=== PATIENT | male | born 1950 | race Caucasian/White ===

== ENCOUNTER 2016-12-03 16:00 | Inpatient (IN) | payer MEDICARE ==
[~2016-12-03] VITALS: Ht 160 cm; Wt 137.8 kg
[~2016-12-03 16:00] MED LIST: AMLODIPINE10 MG PO; ASPI325T6 PO; ASPIRIN E.C. 8181 MG PO; BENADRYL50 MG PO; BUMEX 1MG TA1 MG/TA1 PO; CATAPRES 0.1MG0.1 MG PO; CLARITIN10 MG PO; DEMADEX100 MG PO; DISALCID500 MG PO; DISALCID750 MG PO; FOLIC ACID 11 MG/TA1 PO; FORTESTA10 MG/0.5 TP; GLUCOPHAGE500 MG/TAB PO; HYDROCHLOROTH12.5 MG PO; HYDROCODONE/APAP; IMODIUM 2MG CAPS2 MG PO; KLOR-CON 1010 MEQ PO; LIPITOR 80MG80 MG PO; LOPRESSOR 550 MG/TAB PO; METHOTREXA2.5 MG/TAB PO; MULTIPLE VITAMI1 CAP PO; NATURAL MAGNES200 MG PO; NEURONTIN100 MG/CAP PO; NEURONTIN300 MG PO; NEURONTIN300 MG/CAP PO; OXYCONTIN 10MG10 MG PO; PERCOCET 325 MG1 TA2 PO; PLAVIX 75MG TAB75 MG PO; PREDNISONE 2.52.5 MG PO; PREDNISONE 5MG5 MG PO; PREDNISONE20 MG PO; PROBIOTICA100 MILLIO PO; PROTONIX20 MG PO; RT ADVAIR 228 DISKUS IH; SINEQUAN 2525 MG/CAP PO; SYNTHROID0.125 MG/T PO; THEO-24 20200 MG/CAP PO; THEO-DUR 2200 MG/TAB PO; ULTRAM ER100 MG PO; UNABLE; VITAMIN D 50,1.25 MG PO; ZANTAC 7575 MG PO; ZESTRIL 5MG5 MG PO; ZOFRAN 4MG T4 MG/TAB PO; [UNRECOGNIZED DRUG - REMARK]
[2016-12-03 17:27] LABS: INFLUENZA B NEGATIVE
[2016-12-03] MEDS ORDERED: THEO-24400 MG PO (17:42)
[2016-12-03] MEDS ORDERED: PLAQUENIL 200M200 MG PO (17:43)
[2016-12-03] MEDS ORDERED: ALDACTONE 25MG25 M1 PO (17:43)
[2016-12-03] MEDS ORDERED: ARAVA 20MG TABL20 MG PO (17:44)
[2016-12-03] MEDS ORDERED: CORTEF5 MG PO (17:44)
[2016-12-03 17:46] LABS: ARTERIAL BLD GAS TCO2 CT 26.4; ARTERIAL BLOOD GAS BASE EXCESS 1.2 (-2-2); ARTERIAL BLOOD GAS HCO3 25.2 meq/L (22-26); ARTERIAL BLOOD GAS PHT 7.44 C (7.35-7.45); ARTERIAL BLOOD GAS PO2 58.8 mmHg (80-100); ARTERIAL BLOOD GAS PO2T 58.8 (80-100); ARTERIAL BLOOD GAS pH 7.44 (7.35-7.45); ATS? YES; OXYHEMOGLOBIN 90.2 %
[2016-12-03 18:28] LABS: BASO # 0.1 (0.0-0.2); BASO % 0.8 % (0.0-2.0); EOS # 0.1 (0.0-0.7); EOS % 1.4 % (0-4.0); GRAN # 4.3 (1.4-6.5); GRAN % 67.4 % (42.2-75.2); HEMATOCRIT 37.4 % (42.0-52.0); HEMOGLOBIN 12.2 g/dl (13.5-18.0); LYMPH # 1.1 (1.2-3.4); LYMPH % 16.7 % (20.0-51.0); MEAN CELL VOLUME 90 fl (80.0-100.0); MEAN CORPUSCULAR HEMOGLOBIN 29 pg (27.0-31.0); MEAN CORPUSCULAR HGB CONC 33 g/dl (33.0-37.0); MEAN PLATELET VOLUME 11.1 fl (7.4-10.4); MONO # 0.8 (0.1-0.6); MONO % 13.2 % (1.7-9.3); PLATELET COUNT 131 K/mm3 (130-400); RED BLOOD COUNT 4.16 M/mm3 (4.20-5.60); REDCELL DISTRIBUTION WIDTH-CV 18.6 % (11.5-14.5); WHITE BLOOD COUNT 6.3 K/mm3 (4.8-10.8)
[2016-12-03 18:36] LABS: INR 1.4 (0.8-3.0); PROTHROMBIN TIME 15.3 SECONDS (9.7-12.8)
[2016-12-03 18:39] LABS: PARTIAL THROMBOPLASTIN TIME 28.8 SECONDS (26.0-37.0)
[2016-12-03 18:43] LABS: ADJUSTED CALCIUM 8.9 mg/dL (8.4-10.2); ALBUMIN 3.6 gm/dL (3.5-5.0); BILIRUBIN,TOTAL 0.8 mg/dL (0.0-1.0); CALCIUM 8.6 mg/dL (8.4-10.2); CREATININE, serum 1.26 mg/dL (0.66-1.25); MAGNESIUM 2.1 mg/dL (1.6-2.3); PHOSPHOROUS 2.4 mg/dL (2.5-4.5); POTASSIUM 3.3 mmol/L (3.4-5.0)
[2016-12-03 18:48] LABS: PH 5 (5-8); SQUAMOUS EPITHELIAL 0-2 /hpf; URINE APPEARANCE Hazy; URINE BACTERIA None Seen /hpf; URINE BILIRUBIN Negative (NEGATIVE); URINE BLOOD Negative (NEGATIVE); URINE COLOR Yellow; URINE GLUCOSE Negative (NEGATIVE); URINE KETONE 1+ (NEGATIVE); URINE RBC 0-2 /hpf; URINE UROBILINOGEN Negative (NEGATIVE); URINE WBC 0-2 /hpf
[2016-12-03 18:53] LABS: ERYTHROCYTE SEDIMENTATION RATE 58 mm/hr (0-30)
[2016-12-03 18:57] LABS: C-REACTIVE PROTEIN 22.4 mg/dL (0.0-0.9)
[2016-12-04] VITALS (174 sets, daily range): BP systolic 116–148; BP diastolic 59–111; PULSE 87–114; TEMP 97.4–102; O2SAT 88–98
[2016-12-04 05:42] LABS: BASO % 0.4 % (0.0-2.0); EOS % 0.4 % (0-4.0); GRAN # 5.8 (1.4-6.5); GRAN % 83.1 % (42.2-75.2); LYMPH # 0.5 (1.2-3.4); MEAN CELL VOLUME 91 fl (80.0-100.0); MEAN CORPUSCULAR HGB CONC 32 g/dl (33.0-37.0); MEAN PLATELET VOLUME 11.2 fl (7.4-10.4); MONO # 0.6 (0.1-0.6); MONO % 8.5 % (1.7-9.3); PLATELET COUNT 118 K/mm3 (130-400); RED BLOOD COUNT 3.85 M/mm3 (4.20-5.60); REDCELL DISTRIBUTION WIDTH-CV 18.7 % (11.5-14.5)
[2016-12-04 05:45] LABS: HEMATOCRIT 35.2 % (42.0-52.0); HEMOGLOBIN 11.2 g/dl (13.5-18.0); MEAN CORPUSCULAR HEMOGLOBIN 29 pg (27.0-31.0)
[2016-12-04 05:55] LABS: ADJUSTED CALCIUM 8.7 mg/dL (8.4-10.2); ALBUMIN 3.3 gm/dL (3.5-5.0); BILIRUBIN,TOTAL 0.9 mg/dL (0.0-1.0); CALCIUM 8.1 mg/dL (8.4-10.2); CREATININE, serum 1.21 mg/dL (0.66-1.25); POTASSIUM 3.7 mmol/L (3.4-5.0); TOTAL PROTEIN 6.6 gm/dL (6.4-8.2)
[2016-12-04 06:24] LABS: THYROID STIMULATING HORMONE 0.765 uIU/mL (0.465-4.680)
[2016-12-05 04:42] VITALS: BP 130/61; PULSE 88; TEMP 98.3
[2016-12-05 07:49] LABS: MEAN CELL VOLUME 91 fl (80.0-100.0); MEAN CORPUSCULAR HGB CONC 32 g/dl (33.0-37.0); MEAN PLATELET VOLUME 11.8 fl (7.4-10.4); PLATELET COUNT 133 K/mm3 (130-400); RED BLOOD COUNT 3.47 M/mm3 (4.20-5.60); REDCELL DISTRIBUTION WIDTH-CV 18.9 % (11.5-14.5); WHITE BLOOD COUNT 5.2 K/mm3 (4.8-10.8)
[2016-12-05 07:50] LABS: HEMATOCRIT 31.7 % (42.0-52.0); MEAN CORPUSCULAR HEMOGLOBIN 29 pg (27.0-31.0)
[2016-12-05 08:03] VITALS: BP 101/63; PULSE 94; TEMP 98.5
[2016-12-05 08:15] LABS: CALCIUM 7.8 mg/dL (8.4-10.2); CREATININE, serum 1.01 mg/dL (0.66-1.25); MAGNESIUM 2.1 mg/dL (1.6-2.3); PHOSPHOROUS 1.7 mg/dL (2.5-4.5); POTASSIUM 3.6 mmol/L (3.4-5.0)
[2016-12-05 11:31] VITALS: BP 106/60; PULSE 81; TEMP 98
[2016-12-06 12:21] LABS: PROCALCITONIN 1.1 ng/mL (<=0.15)
== END 2016-12-05 14:42 | disposition short-term general hospital (02) | DRG 872 ==
LOC: COL.ER 16:00 → ICU 22:08 → COL.ER 23:55 → MEDICAL 12-04 11:20
PROVIDERS: Emergency Medicine; Internal Medicine
PROC: 02HV33Z Insertion of Infusion Device into Superior Vena Cava, Percutaneous Approach (ICD-10-PCS; principal; 2016-12-03)
DX: A41.9 Sepsis, unspecified organism (principal); Z68.43 Body mass index [BMI] 50.0-59.9, adult; N17.9 Acute kidney failure, unspecified; E87.1 Hypo-osmolality and hyponatremia; L03.115 Cellulitis of right lower limb; J96.11 Chronic respiratory failure with hypoxia; E23.0 Hypopituitarism; I25.10 Atherosclerotic heart disease of native coronary artery without angina pectoris; E11.9 Type 2 diabetes mellitus without complications; J44.9 Chronic obstructive pulmonary disease, unspecified; Z87.891 Personal history of nicotine dependence; Z95.5 Presence of coronary angioplasty implant and graft; E66.01 Morbid (severe) obesity due to excess calories; I10 Essential (primary) hypertension; B02.9 Zoster without complications; R10.11 Right upper quadrant pain; R10.13 Epigastric pain
CPT/HCPCS: 99233-AI; 99239; J0133; J0692; J1644; J1720; J1815; J2405; J3010; J3370; J3480; J7030; J7050; Q9967

== ENCOUNTER 2016-12-19 12:24 | Emergency (ER) | payer MEDICARE ==
[~2016-12-19] VITALS: Ht 160 cm; Wt 131.4 kg
[~2016-12-19 12:24] MED LIST changes: +ALDACTONE 25MG25 M1 PO; +ARAVA 20MG TABL20 MG PO; +CORTEF5 MG PO; +PLAQUENIL 200M200 MG PO; +THEO-24400 MG PO
[2016-12-19 12:33] VITALS: BP 143/76; TEMP 98
[2016-12-19 13:25] LABS: BASO # 0.1 (0.0-0.2); BASO % 1.4 % (0.0-2.0); EOS # 0.3 (0.0-0.7); GRAN # 6.1 (1.4-6.5); GRAN % 69.1 % (42.2-75.2); HEMOGLOBIN 13.2 g/dl (13.5-18.0); LYMPH # 1.2 (1.2-3.4); LYMPH % 13.3 % (20.0-51.0); MEAN CELL VOLUME 92 fl (80.0-100.0); MEAN CORPUSCULAR HEMOGLOBIN 30 pg (27.0-31.0); MEAN CORPUSCULAR HGB CONC 32 g/dl (33.0-37.0); MEAN PLATELET VOLUME 10.9 fl (7.4-10.4); MONO # 1.1 (0.1-0.6); MONO % 12.6 % (1.7-9.3); PLATELET COUNT 199 K/mm3 (130-400); RED BLOOD COUNT 4.47 M/mm3 (4.20-5.60); REDCELL DISTRIBUTION WIDTH-CV 21.6 % (11.5-14.5); WHITE BLOOD COUNT 8.9 K/mm3 (4.8-10.8)
[2016-12-19 13:42] LABS: ADJUSTED CALCIUM 10.2 mg/dL (8.4-10.2); ALANINE AMINOTRANSFERASE 59 U/L (21-72); ALBUMIN 3.8 gm/dL (3.5-5.0); ALKALINE PHOSPHATASE 112 U/L (50-136); ANION GAP 14 mmol/L (7-16); BILIRUBIN,TOTAL 0.9 mg/dL (0.0-1.0); BLOOD UREA NITROGEN 5 mg/dL (9-20); CARBON DIOXIDE 17 mmol/L (22-30); CHLORIDE 103 mmol/L (98-107); CREATININE, serum 1.04 mg/dL (0.66-1.25); GLUCOSE 112 mg/dL (74-106); LIPASE 541 U/L (23-300); SODIUM 134 mmol/L (137-145); TOTAL PROTEIN 7.2 gm/dL (6.4-8.2)
[2016-12-19 13:56] LABS: TROPONIN-I < 0.012 ng/mL (0.000-0.034)
[2016-12-19] MEDS ORDERED: PROMETHAZINE12.5 M5 PO (15:21)
[2016-12-19] MEDS ORDERED: ZOFRAN ODT4 MG PO (15:21)
[2016-12-19 16:54] VITALS: PULSE 105
== END 2016-12-19 16:57 | disposition home or self-care (01) ==
LOC: COL.ER 12:24
PROVIDERS: Emergency Medicine
DX: R11.2 Nausea with vomiting, unspecified (principal); I10 Essential (primary) hypertension; E11.9 Type 2 diabetes mellitus without complications; Z79.84 Long term (current) use of oral hypoglycemic drugs; E66.01 Morbid (severe) obesity due to excess calories; Z68.43 Body mass index [BMI] 50.0-59.9, adult; Z79.02 Long term (current) use of antithrombotics/antiplatelets
CPT/HCPCS: J2405; J2550; J7030; Q9967

== ENCOUNTER 2017-11-25 11:22 | Emergency (ER) | payer MEDICARE, OTHER ==
[~2017-11-25] VITALS: Ht 160 cm; Wt 136.4 kg
[~2017-11-25 11:22] MED LIST changes: +PROMETHAZINE12.5 M5 PO; +ZOFRAN ODT4 MG PO
[2017-11-25 13:17] LABS: ALBUMIN 4.1 gm/dL (3.5-5.0); BILIRUBIN,TOTAL 0.6 mg/dL (0.0-1.0); CALCIUM 8.7 mg/dL (8.4-10.2); CREATININE, serum 0.97 mg/dL (0.66-1.25); POTASSIUM 3.7 mmol/L (3.4-5.0); TOTAL PROTEIN 7.2 gm/dL (6.4-8.2)
[2017-11-25 13:34] LABS: BASO % 0.6 % (0.0-2.0); EOS # 0.1 (0.0-0.7); GRAN # 5.3 (1.4-6.5); GRAN % 76.6 % (42.2-75.2); HEMATOCRIT 42.5 % (42.0-52.0); HEMOGLOBIN 13.5 g/dl (13.5-18.0); LYMPH # 0.8 (1.2-3.4); LYMPH % 11.1 % (20.0-51.0); MEAN CELL VOLUME 86 fl (80.0-100.0); MEAN CORPUSCULAR HEMOGLOBIN 27 pg (27.0-31.0); MEAN CORPUSCULAR HGB CONC 32 g/dl (33.0-37.0); MEAN PLATELET VOLUME 11.1 fl (7.4-10.4); MONO # 0.7 (0.1-0.6); MONO % 10.3 % (1.7-9.3); PLATELET COUNT 121 K/mm3 (130-400); RED BLOOD COUNT 4.96 M/mm3 (4.20-5.60); REDCELL DISTRIBUTION WIDTH-CV 17.7 % (11.5-14.5)
[2017-11-25 14:46] VITALS: BP 131/70; PULSE 98; TEMP 99
== END 2017-11-25 15:05 | disposition home or self-care (01) ==
LOC: COL.ER 11:22
PROVIDERS: Emergency Medicine; Physician Assistant
DX: J11.1 Influenza due to unidentified influenza virus with other respiratory manifestations (principal); E11.9 Type 2 diabetes mellitus without complications; E78.5 Hyperlipidemia, unspecified; E03.9 Hypothyroidism, unspecified; J44.9 Chronic obstructive pulmonary disease, unspecified; Z79.84 Long term (current) use of oral hypoglycemic drugs; Z95.5 Presence of coronary angioplasty implant and graft; Z90.49 Acquired absence of other specified parts of digestive tract; Z87.891 Personal history of nicotine dependence; Z79.82 Long term (current) use of aspirin; Z79.02 Long term (current) use of antithrombotics/antiplatelets
CPT/HCPCS: J2405; J7030

== ENCOUNTER → 2018-04-30 | Outpatient (CLI) | payer MEDICARE, OTHER | LOC: COL.RAD 14:18 | DX: J84.10 Pulmonary fibrosis, unspecified (principal); M19.011 Primary osteoarthritis, right shoulder; M19.012 Primary osteoarthritis, left shoulder; M47.814 Spondylosis without myelopathy or radiculopathy, thoracic region; K76.0 Fatty (change of) liver, not elsewhere classified; Z90.49 Acquired absence of other specified parts of digestive tract | CPT/HCPCS: Q9967 ==

== ENCOUNTER → 2018-05-04 | Outpatient (CLI) | payer MEDICARE, OTHER | LOC: COL.PUL 12:45 | DX: R06.02 Shortness of breath (principal); Z87.891 Personal history of nicotine dependence ==

== ENCOUNTER 2020-10-10 06:18 | Day surgery (SDC) | payer MEDICARE, OTHER ==
[~2020-10-10] VITALS: Ht 160 cm; Wt 126.8 kg
[2020-10-10] MEDS ORDERED: MILLIPRED5 MG PO (07:13)
[2020-10-10] MEDS ORDERED: GLUCOTROL XL2.5 MG PO (07:14)
[2020-10-10 07:30] VITALS: BP 110/65; PULSE 78; TEMP 98
[2020-10-10 08:15] VITALS: BP 121/72; PULSE 73; TEMP 97.6
--- NOTE | 2020-10-10 08:15 | NUR ---
Pt returns from endo procedure via cart. Pt ambulates from cart to recliner with RN assist. Monitors on and alarms set. Call light within reach. Report received from CATIE Douglas. Pt alert and responding appropriately. Pt requesting muffin and juice. Pt has no complaints of pain or nausea. Pt's in room.
[2020-10-10 08:30] VITALS: BP 136/82; PULSE 70
[2020-10-10 08:45] VITALS: BP 133/71; PULSE 71
--- NOTE | 2020-10-10 08:45 | NUR ---
Pt taking food and drink well. No complaints voiced.
--- NOTE | 2020-10-10 09:00 | NUR ---
Discharge instructions given to pt and . All questions answered to their satisfaction. Handed to them are a thank you card and discharge instructions.
--- NOTE | 2020-10-10 09:05 | NUR ---
Pt transferred out of hospital via wheelchair and CATIE Christianson assist, to private vehicle driven by pt's .
== END 2020-10-10 09:05 | disposition home or self-care (01) ==
LOC: SDCO 06:18
DX: Z12.11 Encounter for screening for malignant neoplasm of colon (principal); Z86.010 Personal history of colon polyps; I25.10 Atherosclerotic heart disease of native coronary artery without angina pectoris; I10 Essential (primary) hypertension; J44.9 Chronic obstructive pulmonary disease, unspecified; E27.40 Unspecified adrenocortical insufficiency; G47.33 Obstructive sleep apnea (adult) (pediatric); E66.01 Morbid (severe) obesity due to excess calories; E23.0 Hypopituitarism; M06.9 Rheumatoid arthritis, unspecified; M19.90 Unspecified osteoarthritis, unspecified site; G89.29 Other chronic pain; E78.00 Pure hypercholesterolemia, unspecified; Z88.1 Allergy status to other antibiotic agents; I25.2 Old myocardial infarction; K21.9 Gastro-esophageal reflux disease without esophagitis; E11.42 Type 2 diabetes mellitus with diabetic polyneuropathy; Z88.8 Allergy status to other drugs, medicaments and biological substances; Z79.82 Long term (current) use of aspirin; Z79.4 Long term (current) use of insulin; Z68.43 Body mass index [BMI] 50.0-59.9, adult; Z95.5 Presence of coronary angioplasty implant and graft; Z87.891 Personal history of nicotine dependence; Z79.899 Other long term (current) drug therapy; Z20.828 Contact with and (suspected) exposure to other viral communicable diseases
CPT/HCPCS: J2704; J7030

== ENCOUNTER 2022-07-25 20:17 | Emergency (ER) | payer MEDICARE, OTHER ==
[~2022-07-25] VITALS: Ht 160 cm; Wt 124.5 kg
[~2022-07-25 20:17] MED LIST changes: +GLUCOTROL XL2.5 MG PO; +MILLIPRED5 MG PO
[2022-07-25 20:31] VITALS: TEMP 98
[2022-07-25 21:50] VITALS: BP 140/78; PULSE 64
== END 2022-07-25 21:50 | disposition home or self-care (01) ==
LOC: COL.ER 20:17
DX: M54.50 Low back pain, unspecified (principal); G47.33 Obstructive sleep apnea (adult) (pediatric); Z88.5 Allergy status to narcotic agent; Z99.89 Dependence on other enabling machines and devices; Z28.310 Unvaccinated for COVID-19

== ENCOUNTER → 2023-08-21 | Outpatient (CLI) | payer MEDICARE, OTHER ==
[~2023-08-21] MED LIST changes: +NORCO 325 MG-51 TAB PO
== END ==
LOC: CANPRECLI → COL.PUL 07:48
DX: R06.02 Shortness of breath (principal)